=== PATIENT | male | born 1995 | race Caucasian/White ===

== ENCOUNTER 2022-12-05 12:49 | Outpatient (CLI) | payer OTHER, SELFPAY ==
--- NOTE | 2022-12-05 14:00 | CRLHL7_ITS ---
For Patients: As a result of the Cures Act, medical imaging exams and procedure reports are released immediately into your electronic medical record. You may view this report before your referring provider. If you have questions, please contact your health care provider. Indication: ARTHRITIS Technique: Right knee three views IMPRESSION: Osseous structures are normal. There is no fracture. No joint effusion. Normal joint spaces. Dictated by Jacoby Rabago MD @ 12/06/2022 8:50:48 AM (Electronically Signed)
--- NOTE | 2022-12-05 14:00 | CRLHL7_ITS ---
For Patients: As a result of the Cures Act, medical imaging exams and procedure reports are released immediately into your electronic medical record. You may view this report before your referring provider. If you have questions, please contact your health care provider. Indication: ARTHRITIS Technique: Three views left knee IMPRESSION: No fracture or malalignment. Normal joint spaces. No joint effusion. Dictated by Jacoby Rabago MD @ 12/06/2022 8:53:25 AM (Electronically Signed)
--- NOTE | 2022-12-05 14:15 | CRLHL7_ITS ---
For Patients: As a result of the Cures Act, medical imaging exams and procedure reports are released immediately into your electronic medical record. You may view this report before your referring provider. If you have questions, please contact your health care provider. Indication: ARTHRITIS Technique: Right shoulder three views IMPRESSION: No fracture. Normal joint spaces. Intact visualized ribs. Dictated by Jacoby Rabago MD @ 12/06/2022 8:47:19 AM (Electronically Signed)
--- NOTE | 2022-12-05 14:15 | CRLHL7_ITS ---
For Patients: As a result of the Cures Act, medical imaging exams and procedure reports are released immediately into your electronic medical record. You may view this report before your referring provider. If you have questions, please contact your health care provider. Indication: ARTHRITIS Technique: Left shoulder three views IMPRESSION: No fracture. Alignment normal. Normal joint spaces. Dictated by Jacoby Rabago MD @ 12/06/2022 8:48:00 AM (Electronically Signed)
--- NOTE | 2022-12-05 14:30 | CRLHL7_ITS ---
For Patients: As a result of the Century Cures Act, medical imaging exams and procedure reports are released immediately into your electronic medical record. You may view this report before your referring provider. If you have questions, please contact your health care provider. Indication: Spinal fusion Technique: Lumbar spine 2 view IMPRESSION: Hypertrophic changes associated with the anterior ring apophysis at the superior endplate of L4. The incomplete fusion noted with a small adjacent ossicle. Mild narrowing of the L3-4 disc space. No vertebral body compression fractures. Possible L5 pars defects. Dictated by Jacoby Rabago MD @ 12/06/2022 8:49:27 AM (Electronically Signed)
--- NOTE | 2022-12-05 14:45 | CRLHL7_ITS ---
For Patients: As a result of the Cures Act, medical imaging exams and procedure reports are released immediately into your electronic medical record. You may view this report before your referring provider. If you have questions, please contact your health care provider. Indication: ARTHRITIS Technique: Thoracic spine 2 view IMPRESSION: Normal thoracic vertebral bodies without fracture. No intrinsic lesion. Disc spaces normal. Dictated by Jacoby Rabago MD @ 12/06/2022 8:46:24 AM (Electronically Signed)
== END 2022-12-05 12:50 | disposition home or self-care (01) ==
PROVIDERS: Visit Provider Chiropractor
DX: I25.10 Atherosclerotic heart disease of native coronary artery without angina pectoris (principal); M13.80 Other specified arthritis, unspecified site; M19.90 Unspecified osteoarthritis, unspecified site; M51.26 Other intervertebral disc displacement, lumbar region
CPT/HCPCS: 72070; 72100; 73030; 73562; 93306